=== PATIENT | female | born 1970 ===

== ENCOUNTER 2021-11-25 06:01 | Inpatient (IN) ==
[~2021-11-25 06:01] MED LIST: Buffered Lidocaine 1% SYRIN 1 ml INTRADERM ONE; Famotidine IV 10 MG/ML 2 ml VIAL (20 mg) IV ONE; Lactated Ringers 1000 ml BAG 1,000 ML IV SCH; Scopolamine 1 mg/72hr PATCH TRANSDERM ONE
[2021-11-25] MEDS ORDERED: Scopolamine 1 mg/72hr PATCH ONE (06:22)
[2021-11-25] MEDS ORDERED: Clindamycin 900 MG/D5W BAG 900 MG/50 ML BAG IVPB ONE (06:22)
[2021-11-25] MEDS ORDERED: Heparin 5000 UNITS/ML 1 mL VIAL ONE (06:22)
[2021-11-25] MEDS ORDERED: Famotidine IV 10 MG/ML 2 ml VIAL (20 mg) ONE (06:22)
[2021-11-25] MEDS ORDERED: Bupivacaine 0.25% SDV PF 10 ML VIAL INJ ONE (06:47)
[2021-11-25] MEDS ORDERED: fentaNYL 100 mcg/2 ml 50 MCG/ML VIAL ONE (07:20)
[2021-11-25] MEDS ORDERED: Midazolam 2 mg/2 ml VIAL 1 mg/ml 2 ml VIAL (2 mg) ONE (07:20)
[2021-11-25] MEDS ORDERED: Phenylephrine IV 10 MG/ML 1 ml VIAL ONE (08:56)
[2021-11-25] MEDS ORDERED: Metoclopramide 5 MG/ML VIAL (10 mg) ONE (10:10)
[2021-11-25] MEDS ORDERED: Ondansetron 4 mg VIAL 2 MG/ML 2 ml VIAL ONE (10:10)
[2021-11-25] MEDS ORDERED: Propofol 10 MG/ML 20 ML BTL ONE (10:38)
[2021-11-25] MEDS ORDERED: Rocuronium 50 mg VIAL 10 mg/ml 5 ml VIAL (50 mg) ONE (10:39)
[2021-11-25] MEDS ORDERED: EPHEDrine (Pressors) 50 MG/ML VIAL ONE (10:51)
[2021-11-25] MEDS ORDERED: Acetaminophen IV 1 GM/100ML 100 ML IV ONE (10:52)
[2021-11-25] MEDS ORDERED: Cyclobenzaprine 5 mg TAB (NF) PO PRN (13:01)
[2021-11-25] MEDS ORDERED: Morphine 2 MG/ML SYRINGE IV PRN (13:01)
[2021-11-25] MEDS ORDERED: Benzocaine/Menthol LOZ PO PRN (13:04)
[2021-11-25] MEDS: Heparin 5000 UNITS/ML 1 mL VIAL SUBCUT SCH ×2 (16:10→22:19)
[2021-11-25] MEDS: Clindamycin 900 MG/D5W BAG 900 MG/50 ML BAG IVPB SCH (16:24)
[2021-11-25] MEDS: HYDROcodone/ACETAMIN 5/325 mg TAB PO PRN (22:29)
[2021-11-26] MEDS: Clindamycin 900 MG/D5W BAG 900 MG/50 ML BAG IVPB SCH ×3 (01:14→15:53)
[2021-11-26] MEDS: Heparin 5000 UNITS/ML 1 mL VIAL SUBCUT SCH ×3 (05:35→22:01)
[2021-11-26] MEDS: HYDROcodone/ACETAMIN 5/325 mg TAB PO PRN (05:41)
[2021-11-26] MEDS ORDERED: Dextrose 50% Syringe 50 ml 25 GM/50 ML SYRINGE IV PUSH PRN (08:27)
[2021-11-26 08:51] LABS: ABS Basophils 0.1 10^3/ul (0-0.2); ABS Lymphocytes 0.8 10^3/ul (1.0-4.8); ABS Monocytes 0.6 10^3/ul (0-0.8); ABS Neutrophils 6.7 10^3/ul (1.5-7.7); Eosinophil % 0.6 %; Hematocrit 34 % (35-47); Hemoglobin 11.1 g/dL (12.0-16.0); Lymphocyte % 10.1 %; Mean Corpuscular HGB Conc 32 g/dL (31-36); Mean Corpuscular Hemoglobin 32 pg (27-31); Mean Corpuscular Volume 98 fL (80-97); Mean Platelet Volume 7.5 fL (7.4-10.4); Platelet Count 313 10^3/uL (150-450); Red Cell Distribution Width 17 % (10-15); White Blood Count 8.2 10^3/uL (3.5-10.8)
[2021-11-26 09:24] LABS: Calcium 8.2 mg/dL (8.6-10.3); Potassium 4.1 mmol/L (3.5-5.0); eGFR CKD-EPI 103.7 (>60)
[2021-11-26] MEDS ORDERED: NS 0.9% 1000 ml BAG 1,000 ML IV ONE (11:48)
[2021-11-26] MEDS ORDERED: Iohexol 350 (CONTRAST) 500 ML MDV IV ONE (14:27)
[2021-11-26 14:37] LABS: Ferritin 44.2 ng/mL (11-307)
[2021-11-26] MEDS: Iron Sucrose 200 MG in NS 0.9% 100 ml BAG 100 ML IVPB SCH (15:53)
[2021-11-27] MEDS: Clindamycin 900 MG/D5W BAG 900 MG/50 ML BAG IVPB SCH ×3 (00:49→16:24)
[2021-11-27] MEDS: HYDROcodone/ACETAMIN 5/325 mg TAB PO PRN ×2 (00:52→14:53)
[2021-11-27 06:52] LABS: ABS Basophils 0.1 10^3/ul (0-0.2); ABS Eosinophils 0.1 10^3/ul (0-0.6); ABS Lymphocytes 1.1 10^3/ul (1.0-4.8); ABS Monocytes 0.6 10^3/ul (0-0.8); ABS Neutrophils 4.5 10^3/ul (1.5-7.7); Eosinophil % 2.2 %; Hematocrit 34 % (35-47); Hemoglobin 11.1 g/dL (12.0-16.0); Lymphocyte % 17.6 %; Mean Corpuscular HGB Conc 33 g/dL (31-36); Mean Corpuscular Hemoglobin 32 pg (27-31); Mean Corpuscular Volume 98 fL (80-97); Mean Platelet Volume 7.9 fL (7.4-10.4); Platelet Count 310 10^3/uL (150-450); Red Blood Count 3.42 10^6 /uL (3.70-4.87); Red Cell Distribution Width 16 % (10-15); White Blood Count 6.4 10^3/uL (3.5-10.8)
[2021-11-27 07:31] LABS: Calcium 8.2 mg/dL (8.6-10.3); Potassium 4.2 mmol/L (3.5-5.0); eGFR CKD-EPI 107.7 (>60)
[2021-11-27] MEDS: Heparin 5000 UNITS/ML 1 mL VIAL SUBCUT SCH ×3 (07:45→22:37)
[2021-11-27] MEDS ORDERED: Lactated Ringers 1000 ml BAG 1,000 ML IV ONE (08:34)
[2021-11-27] MEDS: Iron Sucrose 200 MG in NS 0.9% 100 ml BAG 100 ML IVPB SCH (10:45)
[2021-11-27] MEDS: ceFAZolin VIAL 2 GM in NS 0.9% 100 ml BAG 100 ML IVPB SCH ×2 (11:56→19:48)
[2021-11-28] MEDS: Clindamycin 900 MG/D5W BAG 900 MG/50 ML BAG IVPB SCH ×4 (00:48→23:57)
[2021-11-28] MEDS: ceFAZolin VIAL 2 GM in NS 0.9% 100 ml BAG 100 ML IVPB SCH ×3 (02:51→19:35)
[2021-11-28] MEDS: Heparin 5000 UNITS/ML 1 mL VIAL SUBCUT SCH ×3 (05:31→22:03)
[2021-11-28] MEDS ORDERED: Scopolamine 1 mg/72hr PATCH TRANSDERM SCH (06:00)
[2021-11-28] MEDS: Iron Sucrose 200 MG in NS 0.9% 100 ml BAG 100 ML IVPB SCH (08:59)
[2021-11-28] MEDS: HYDROcodone/ACETAMIN 5/325 mg TAB PO PRN (11:37)
[2021-11-29] MEDS: ceFAZolin VIAL 2 GM in NS 0.9% 100 ml BAG 100 ML IVPB SCH ×3 (02:53→21:47)
[2021-11-29] MEDS: Heparin 5000 UNITS/ML 1 mL VIAL SUBCUT SCH ×3 (05:05→21:49)
[2021-11-29] MEDS: Clindamycin 900 MG/D5W BAG 900 MG/50 ML BAG IVPB SCH (08:47)
[2021-11-29] MEDS: Iron Sucrose 200 MG in NS 0.9% 100 ml BAG 100 ML IVPB SCH (10:31)
[2021-11-30] MEDS: ceFAZolin VIAL 2 GM in NS 0.9% 100 ml BAG 100 ML IVPB SCH (04:36)
[2021-11-30] MEDS: Heparin 5000 UNITS/ML 1 mL VIAL SUBCUT SCH ×2 (06:04→14:15)
[2021-11-30] MEDS: Iron Sucrose 200 MG in NS 0.9% 100 ml BAG 100 ML IVPB SCH (09:47)
[2021-11-30 11:40] VITALS: BP 132/89
[2021-11-30] MEDS ORDERED: Scopolamine 1 mg/72hr PATCH TRANSDERM ONE (18:00)
== END 2021-11-30 17:45 | disposition home health service (06) | DRG 362 ==
LOC: SSU → AA 06:01 → INTOOBSV 06:01
PROVIDERS: ADMIT Student in an Organized Health Care Education/Training Program; ATTEND Student in an Organized Health Care Education/Training Program